=== PATIENT | male | born 1960 | race Hispanic/Latino ===

== ENCOUNTER → 2023-11-21 | Outpatient (CLI) | payer OTHER ==
[~2023-11-21] MED LIST: ACET-2743 PO; ATOR10TA69 PO; HYDR12.530 PO; LISI10TA24 PO; MUTLIVITAMIN PO; PANT40TA54 PO
[2023-11-21 10:25] LABS: CREATININE 0.8 mg/dL (0.5-1.5)
== END | disposition home or self-care (01) ==
LOC: LAB 09:22
PROVIDERS: ATTEND Internal Medicine
DX: R93.2 Abnormal findings on diagnostic imaging of liver and biliary tract (principal)
CPT/HCPCS: 36415; 82565; 84520

== ENCOUNTER → 2023-11-23 | Outpatient (CLI) | payer OTHER ==
[~2023-11-23] MED LIST changes: +IOHEXOL-350 75 ML VIAL IV ONE
== END | disposition home or self-care (01) ==
LOC: RAH 11:19
PROVIDERS: ATTEND Internal Medicine
DX: K42.9 Umbilical hernia without obstruction or gangrene (principal); R93.2 Abnormal findings on diagnostic imaging of liver and biliary tract; K76.9 Liver disease, unspecified; M47.815 Spondylosis without myelopathy or radiculopathy, thoracolumbar region; K76.0 Fatty (change of) liver, not elsewhere classified
CPT/HCPCS: 74170; Q9967

== ENCOUNTER → 2024-09-27 | Outpatient (CLI) | payer OTHER ==
[~2024-09-27] MED LIST changes: -IOHEXOL-350 75 ML VIAL IV ONE
--- NOTE | 2024-09-27 11:24 | HMCIMG ---
CT HEART SAVER PROMOTIONAL HISTORY: Calcium scoring COMPARISON: None TECHNIQUE: Computed tomography of the heart was performed with ECG gating and suspended respiration. Postprocessing was performed on a computer workstation to obtain diastolic phase images, determine calcium score and provide a quantitative assessment of extent of disease. This CT included only the heart. HeartSaver score is 1250.30. Please see cardiac calcium score report. The available CT chest images show no acute finding. CT was performed with one or more following dose reduction techniques: automated exposure control, adjustment of the mA and kv according to patient's size, or use of a iterative reconstruction technique.
--- NOTE | 2024-09-29 10:07 | HMCSR ---
APPROVED REPORT EXAM: Two-dimensional and M-mode echocardiogram with Doppler and color Doppler. 2D Dimensions RVDd4.0 cmLVEF(%)60.2 (>50%)LVED Vol(simp.)150.0 mL IVSd1.0 (0.7-1.1cm)FS(%)32 %LVES Vol(simp.)62.0 mL LVDd4.5 (3.8-5.6cm)Ao Root(2D)3.3 (2.0-3.7cm)LVEF(%, simp.)58 % PWd1.0 (0.7-1.1cm)LVOT diam2.3 (1.8-2.4cm)LA ESV INDEX (BP)31.83 mL/m2 LVDs3.1 (2.5-4.0cm)IVC diam1.2 cm Aortic Valve AoV Vmax1.4 m/Didier Peak GR8.2 mmHgLVOT Vmax1.3 m/s AoV VTI0.3 mAo Mean GR4.3 mmHgLVOT VTI0.25 m TAIWO (VMAX)3.3 cm2Al P1/2T707 msAVA (VTI) 3.3 cm2 Mitral Valve MV E Vmax98.6 cm/sDECEL Chxb714 ms MV A Vmax79.8 cm/sP 1/2 T61 ms E/A ratio1.2MVA (PHT)3.6 cm2 TDI E/E' Tmncfe98.2E/E' Lateral8.1 Pulmonary Valve PV Vmax1.1 m/sPV VTI0.26 mPV Mean GR3 mmHg PV Peak GR5.3 mmHgPI End Rosalina. Magnus 0.9 cm/s Tricuspid Valve TR Vmax2.6 m/sRAP (EST) 3 ysTyMFBS16.3 mmHg TR Peak GR26.3 mmHg Left Ventricle Left ventricular cavity size is normal. There is normal LV segmental wall motion. There is normal lef t ventricular wall thickness. LVEF is 55-60%. Left ventricular filling pattern is normal for age. Right Ventricle The right ventricle is normal size. The right ventricular systolic function is normal. Atria The left atrium size is normal. The right atrium size is normal. Aortic Valve Aortic valve is trileaflet. Aortic valve leaflets are sclerotic but open well. Mild aortic regurgitat ion. There is no aortic valvular stenosis. Mitral Valve Mitral valve leaflets are mildly sclerotic but open well. Mitral regurgitation is trace. There is no mitral valve stenosis. Tricuspid Valve The tricuspid valve leaflets appear normal. There is trace tricuspid regurgitation. Pulmonic Valve The pulmonic valve is mildly sclerotic but open well. There is trace pulmonic valvular regurgitation. Great Vessels The aortic root is normal in size. The IVC is normal in size and collapses >50% with inspiration. Pericardium No pericardial effusion. Conclusion LVEF is 55-60%. Mild aortic regurgitation. Mitral regurgitation is trace.
== END | disposition home or self-care (01) ==
LOC: SHCH 08:50
PROVIDERS: ATTEND Internal Medicine Cardiovascular Disease
DX: Z13.6 Encounter for screening for cardiovascular disorders (principal); I10 Essential (primary) hypertension; I08.8 Other rheumatic multiple valve diseases
CPT/HCPCS: 75571; 93306

== ENCOUNTER → 2024-11-26 | Outpatient (CLI) | payer OTHER ==
[2024-11-26 21:56] VITALS: PULSE 64; RESP 12
[2024-11-26 22:30] VITALS: PULSE 58; RESP 18
[2024-11-26 23:02] VITALS: PULSE 61; RESP 16
[2024-11-26 23:30] VITALS: PULSE 76; RESP 16
[2024-11-27] VITALS (10 sets, daily range): PULSE 54–74; RESP 16–18
--- NOTE | 2024-11-27 05:38 | NUR ---
LIST OF CURRENT MEDICATIONS: AMILORIDE 5 MG, ROTHIAZIDE 12.5 MG, HYDROCHLOROTHIAZIDE , AMLODIPINE 5 MG, PANTOPRAZOLE 40 MG, FLUOXETINE 20 MG, LOSARTAN 50 MG, ATORVASTATIN 10 MG. MULTIVITAMIN, B 12 VITAMIN. Addendum: 11/27/24 at 0541 by BENJI LEAL Amended: Links added.
== END | disposition home or self-care (01) ==
LOC: SLP 20:28
PROVIDERS: ATTEND Internal Medicine Cardiovascular Disease
DX: G47.33 Obstructive sleep apnea (adult) (pediatric) (principal)
CPT/HCPCS: 95810

== ENCOUNTER → 2024-12-04 | Outpatient (CLI) | payer OTHER ==
[2024-12-04 21:50] VITALS: PULSE 62; RESP 19
[2024-12-04 22:30] VITALS: PULSE 59; RESP 18
[2024-12-04 23:23] VITALS: PULSE 58; RESP 22
[2024-12-04 23:32] VITALS: PULSE 58; RESP 19
[2024-12-05] VITALS (14 sets, daily range): PULSE 50–62; RESP 14–24
== END | disposition home or self-care (01) ==
LOC: SLP 20:00
PROVIDERS: ATTEND Internal Medicine Cardiovascular Disease
DX: G47.33 Obstructive sleep apnea (adult) (pediatric) (principal)
CPT/HCPCS: 95811